=== PATIENT | female | born 1955 | race Caucasian/White ===

== ENCOUNTER → 2017-03-19 | Outpatient (CLI) | payer BC ==
--- NOTE | 2017-03-19 15:51 | PCVCIMAG ---
APPROVED REPORT Study performed: 03/19/2017 14:23:19 EXAM: Comprehensive 2D, Doppler, and color-flow Echocardiogram Patient Location: Echo lab Status: routine Other Information Study Quality: Adequate Indications Hypertension, Palpitations, angina 2D Dimensions RVDd: 21.56 mmLVEF(%): 66.03 (>50%) IVSd: 9.47 (7-11mm)LVOT Diam: 18.83 (18-24mm) LVDd: 48.31 mm PWd: 9.15 (7-11mm)Ascending Ao: 26.46 (22-36mm) LVDs: 30.71 (25-40mm) Left Atrium: 40.05 (27-40mm) Aortic Root: 26.73 mm Chavez's LVEF: 66.03 % Volumes Left Atrial Volume (Systole) Single Plane 4CH: 42.13 mLSingle Plane 2CH: 43.24 mL LA ESV Index: 24.00 mL/m2 Aortic Valve AoV Peak Wilfrido.: 1.36 m/s AO Peak Gr.: 7.57 mmHgLVOT Max P.71 mmHg LVOT Max V: 1.19 m/s ADRIENNE Vmax: 2.44 cm2 Mitral Valve E/A Ratio: 1.4 MV Decel. Time: 183.57 ms MV E Max Wilfrido.: 1.07 m/s MV A Wilfrido.: 0.76 m/s MV PHT: 53.23 ms IVRT: 76.12 ms Pulmonary Valve PV Peak Gr.: 3.16 mmHg Pulmonary Vein P Vein S: 0.72 m/sP Vein A: 0.29 m/s P Vein D: 0.50 m/sP Vein A Dur.: 55.4 msec P Vein S/D Ratio: 1.44 Tricuspid Valve TR Peak Wilfrido.: 2.42 m/s TR Peak Gr.: 23.34 mmHg Left Ventricle The left ventricle is normal size. There is normal LV segmental wall motion. There is normal left ventricular wall thickness. Left ventricular systolic function is normal. The left ventricular ejection fraction is within the normal range. LVEF is 55-60%. The left ventricular diastolic function is normal. Right Ventricle The right ventricle is normal size. The right ventricular systolic function is normal. Atria The left atrium size is normal. The right atrium size is normal. Aortic Valve The aortic valve is normal in structure. No aortic regurgitation is present. There is no aortic valvular stenosis. Mitral Valve The mitral valve is normal in structure. Mild mitral regurgitation. No evidence of mitral valve stenosis. Tricuspid Valve The tricuspid valve is normal in structure. Mild tricuspid regurgitation. Pulmonary artery pressure is 31mmhg. Pulmonic Valve The pulmonary valve is normal in structure. There is no pulmonic valvular regurgitation. Great Vessels The aortic root is normal in size. IVC is normal in size and collapses with >50% inspiration Pericardium There is no pericardial effusion. <Conclusion> The left ventricle is normal size. There is normal left ventricular wall thickness. Left ventricular systolic function is normal. The right ventricle is normal size. The left atrium size is normal. The right atrium size is normal. The aortic valve is normal in structure. Mild mitral regurgitation. Mild tricuspid regurgitation. Pulmonary artery pressure is 31mmhg.
== END | disposition home or self-care (01) ==
LOC: PCVCIMAG 14:08
PROVIDERS: ATTEND Internal Medicine
DX: I08.1 Rheumatic disorders of both mitral and tricuspid valves (principal); I20.1 Angina pectoris with documented spasm; I45.89 Other specified conduction disorders; I10 Essential (primary) hypertension; E78.00 Pure hypercholesterolemia, unspecified; K21.9 Gastro-esophageal reflux disease without esophagitis; R94.31 Abnormal electrocardiogram [ECG] [EKG]; Z88.0 Allergy status to penicillin; Z79.899 Other long term (current) drug therapy; Z90.49 Acquired absence of other specified parts of digestive tract
CPT/HCPCS: 93005; 93306; G0463